=== PATIENT | male | born 1980 | race Two or more races ===

== ENCOUNTER → 2024-06-13 | Outpatient (CLI) | payer OTHER, SELFPAY ==
--- NOTE | 2024-06-13 13:00 | XR_ITS ---
Examination: CT maxillofacial, without intravenous contrast. 2-D sagittal reconstructions. 3-D reconstructions. Date and time of exam:June 13, 2024 1332 hours INDICATIONS: Nasal congestion and pain one year CTDI: vol (mGy):15.7 DLP: (mGycm):341 Technique: Multiple axial images of maxillofacial region, 3.0 mm slice thickness. 2-D sagittal and coronal reconstructions. 3-D reconstructions. Low dose protocols were performed. One or more of the following dose reduction techniques were used; automated exposure control, adjustment of the mA and/or KV according to patient size, use of iterative reconstruction technique. Findings: Mucosal thickening in the frontal ethmoid air cells No occlusion ostiomeatal complexes Mucosal thickening up to 4 mm in the maxillary antra Moderate hypertrophy right inferior nasal turbinate Trace mucosal thickening sphenoid air cells No fluid levels No nasopharyngeal mass The optic globes exhibit symmetry IMPRESSION: Chronic pansinusitis.
== END | disposition home or self-care (01) ==
DX: J32.4 Chronic pansinusitis (principal)
CPT/HCPCS: 70486